=== PATIENT | male | born 2005 ===

== ENCOUNTER → 2024-05-30 08:30 | Outpatient (BNV) | payer BC, SELFPAY | PROVIDERS: Visit Provider Internal Medicine Cardiovascular Disease | DX: R00.1 Bradycardia, unspecified (principal) | CPT/HCPCS: 93248 ==

== ENCOUNTER → 2024-05-30 14:00 | Outpatient (REF) | payer BC, SELFPAY | LOC: HO.CARD 14:00 | PROVIDERS: Visit Provider Internal Medicine | DX: R00.2 Palpitations (principal) | CPT/HCPCS: 93246 ==